=== PATIENT | male | born 1945 | race Caucasian/White ===

== ENCOUNTER 2017-10-25 20:47 | Emergency (ER) | payer MEDICARE, OTHER, SELFPAY | END 2017-10-25 22:11 | disposition home or self-care (01) | PROVIDERS: Emergency Provider Emergency Medicine; Visit Provider Emergency Medicine | DX: J95.03 Malfunction of tracheostomy stoma (principal); I10 Essential (primary) hypertension; E78.5 Hyperlipidemia, unspecified; E11.9 Type 2 diabetes mellitus without complications; Z85.21 Personal history of malignant neoplasm of larynx; J44.9 Chronic obstructive pulmonary disease, unspecified | CPT/HCPCS: 99282 ==